=== PATIENT | male | born 1980 | race Two or more races ===

== ENCOUNTER 2022-05-29 20:27 | Emergency (ER) | payer BC ==
[2022-05-29] MEDS ORDERED: Acetaminophen/HYDROcodone 325-5 MG Tab PO ONE (21:48)
[2022-05-29] MEDS ORDERED: Lisinopril 10 MG Tab PO ONE (21:48)
[2022-05-29] MEDS ORDERED: Acyclovir 200 MG Cap PO ONE (21:48)
[2022-05-29] MEDS ORDERED: Ibuprofen 600 MG Tab PO ONE (21:48)
== END 2022-05-29 22:20 | disposition home or self-care (01) ==
LOC: MW.ED 20:27
DX: B02.9 Zoster without complications (principal); I10 Essential (primary) hypertension; Z79.899 Other long term (current) drug therapy
CPT/HCPCS: 99283; A9270

== ENCOUNTER 2023-07-07 04:24 | Emergency (ER) | payer OTHER, BC ==
[2023-07-07] MEDS: Ibuprofen 600 MG Tab PO ONE (04:37)
[2023-07-07] MEDS: Acetaminophen/oxyCODONE 325-5 MG Tab PO ONE (04:37)
== END 2023-07-07 05:02 | disposition home or self-care (01) ==
LOC: MW.ED 04:24
DX: S52.124A Nondisplaced fracture of head of right radius, initial encounter for closed fracture (principal); Z90.49 Acquired absence of other specified parts of digestive tract; Z79.899 Other long term (current) drug therapy; W18.30XA Fall on same level, unspecified, initial encounter; Y99.0 Civilian activity done for income or pay
CPT/HCPCS: 73030; 73080; 99283; A9270

== ENCOUNTER 2023-07-08 11:32 | Emergency (ER) | payer OTHER, BC | END 2023-07-08 14:22 | disposition home or self-care (01) | LOC: MW.ED 11:32 | DX: S52.121A Displaced fracture of head of right radius, initial encounter for closed fracture (principal); I10 Essential (primary) hypertension; E78.00 Pure hypercholesterolemia, unspecified; E11.9 Type 2 diabetes mellitus without complications; Z79.899 Other long term (current) drug therapy; Z79.84 Long term (current) use of oral hypoglycemic drugs; W19.XXXA Unspecified fall, initial encounter; Y99.0 Civilian activity done for income or pay | CPT/HCPCS: 29105; 73060-26-RT; 73060-RT; 73080-26-RT; 73080-RT; 73090-26-RT; 73090-RT; 99283 ==

== ENCOUNTER 2025-02-24 19:46 | Emergency (ER) | payer BC ==
[2025-02-24] MEDS: Diphtheria,Pertussis(Acell),Tetanus Vaccine 0.5 ML Syringe IM ONE (20:24)
[2025-02-24] MEDS: Water For Injection, Sterile 20 ML ONE (20:25)
== END 2025-02-24 22:39 | disposition home or self-care (01) ==
LOC: MW.ED 19:46
DX: S61.210A Laceration without foreign body of right index finger without damage to nail, initial encounter (principal); I10 Essential (primary) hypertension; E78.00 Pure hypercholesterolemia, unspecified; E11.9 Type 2 diabetes mellitus without complications; Z90.49 Acquired absence of other specified parts of digestive tract; Z79.84 Long term (current) use of oral hypoglycemic drugs; Z23 Encounter for immunization; Z79.899 Other long term (current) drug therapy; W27.8XXA Contact with other nonpowered hand tool, initial encounter
CPT/HCPCS: 12002; 73140; 90471; 90715; 96372; 99283; A4216; J0690; J2003